=== PATIENT | male | born 1980 | race Caucasian/White ===

== ENCOUNTER 2017-07-09 11:32 | Emergency (ER) | payer OTHER ==
--- NOTE | 2017-07-09 11:38 | PDOC ---
History of Present Illness - General Chief Complaint: Headache Stated Complaint: HEADACHE,DIZZY Time Seen by Provider: 07/09/17 11:38 - History of Present Illness Initial Comments: 07/09/17 11:52 37yo male presents ambulatory to the ED from his place of work c/o a moreira that occurs while he is at work. States at his work site, there has been work being done on the ceiling for the last few months. 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 Pt states when he leaves work the moreira resolves. States he had the moreira saturday and saturday while at work, but felt normal saturday while at home. States he left work today because the moreira worsened and he felt generally weak. Denies f/c. NO blurred vision or change in vision. No neck pain. NO rhinorrhea or sore throat. No cough/cp/sob. No abd pain. No n/v/d. No dsyuria. No paresthesias. Pt ambulated into the ED. Pt denies dysuria. No n/v/d. No vertigo. No ear pain. No other complaints. Pt states he does not wear a mask at work. PMHx: chronic back pain, shoulder pain, knee pain (follows with orthopedics) PShx: L shoulder surgery, L knee surgerty Allergies: denies Social: denies tobacco, etoh, drugs Meds: motrin, hydrocodone Past History - Past Medical History Allergies/Adverse Reactions: Allergies Allergy/AdvReac Type Severity Reaction Status Date / Time No Known Allergies Allergy Verified 07/09/17 11:38 Home Medications: Ambulatory Orders Oxycodone HCl/Acetaminophen [Percocet 10-325 mg Tablet] 1 - 2 tab PO Q6H Tramadol HCl 50 mg PO PRN 04/22/15 Zolpidem Tartrate [Ambien] 5 mg PO HS 04/22/15 Celecoxib [Celebrex] 200 mg PO DAILY 07/09/17 Ibuprofen [Motrin -] 800 mg PO PRN PRN 07/09/17 - Suicide/Smoking/Psychosocial Hx Smoking History: Never smoked Hx Alcohol Use: No Drug/Substance Use Hx: No Substance Use Type: None Review of Systems - Review of Systems Able to Perform ROS?: Yes Is the patient limited Italian proficient: No Constitutional: No: Chills, Fever HEENTM: No: Eye Pain, Blurred Vision, Ear Discharge, Nose Pain, Nose Congestion , Throat Pain, Throat Swelling Respiratory: No: Cough, Shortness of Breath, Wheezing Cardiac (ROS): No: Chest Pain, Irregular Heart Rate, Palpitations ABD/GI: No: Diarrhea, Nausea, Vomiting : No: Burning, Dysuria Musculoskeletal: Yes: Muscle Weakness. No: Back Pain Integumentary: No: Bruising, Rash Neurological: Yes: Headache. No: Numbness, Paresthesia, Tingling, Unsteady Gait , Ataxia All Other Systems: Reviewed and Negative *Physical Exam - Vital Signs 07/09/17 11:58 Selected Entries 07/09/17 11:38 Temperature 98.1 F Pulse Rate 84 Respiratory 19 Rate Blood Pressure 126/75 Blood Pressure 92 Mean O2 Sat by Pulse 100 Oximetry (%) Weight 83.915 kg - Physical Exam General Appearance: Yes: Nourished, Appropriately Dressed. No: Apparent Distress HEENT: positive: EOMI, DAVID, Normal ENT Inspection, Pharynx Normal. negative: Rhinorrhea Neck: positive: Trachea midline, Supple. negative: Tender Respiratory/Chest: positive: Lungs Clear, Normal Breath Sounds. negative: Chest Tender, Respiratory Distress, Accessory Muscle Use, Crackles, Rales, Rhonchi, Stridor, Wheezing Cardiovascular: positive: Regular Rhythm, Regular Rate, S1, S2. negative: Edema , Murmur Gastrointestinal/Abdominal: positive: Normal Bowel Sounds, Flat, Soft. negative : Guarding, Rebound, Tenderness Lymphatic: negative: Adenopathy Musculoskeletal: positive: Normal Inspection. negative: CVA Tenderness Extremity: positive: Normal Capillary Refill, Normal Inspection, Normal Range of Motion, Other (ambulatory with a steady gait) Integumentary: positive: Normal Color, Dry, Warm Neurologic: positive: parimutuel clerk II-XII NML intact, Fully Oriented, Alert, Normal Mood/ Affect, Motor Strength 5/5, Other (ambulatory with a steady gait). 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 Please return to the ED with any further complaints. Please make an appointment to follow up with your PMD. - Post Discharge Activity Forms/Work/School Notes: Back to Work
[2017-07-09 11:48] VITALS: BP 126/75; PULSE 84; TEMP 98.1; BMI 27.3
[2017-07-09] MEDS ORDERED: IBUPROFEN 600 MG TABLET (FP) PO ONE ×2 (11:52→11:59)
[2017-07-09] MEDS ORDERED: METOCLOPRAMIDE HCL 10 MG TABLET (FP) PO ONE ×2 (11:52→11:59)
[2017-07-09 14:32] LABS: ARTERIAL BLD GAS O2 SATURATION 99.1 % (90-98.9); ARTERIAL BLOOD GAS BASE EXCESS 2.2 meq/l (-2-2); ARTERIAL BLOOD GAS PCO2 41.6 mmHg (35-45); ARTERIAL BLOOD GAS pH 7.42 (7.35-7.45)
[2017-07-09 14:40] LABS: CARBOXYHEMOGLOBIN 0.7 gm% (0.5-2.0)
== END 2017-07-09 15:31 | disposition home or self-care (01) ==
LOC: FER 11:32
DX: Z77.098 Contact with and (suspected) exposure to other hazardous, chiefly nonmedicinal, chemicals (principal); R51 Headache; X58.XXXA Exposure to other specified factors, initial encounter; Y93.89 Activity, other specified; Y92.9 Unspecified place or not applicable; G89.29 Other chronic pain
CPT/HCPCS: 36600; 82375; 82803; 83050; 99282-25

== ENCOUNTER 2018-11-01 18:49 | Emergency (ER) | payer OTHER ==
[2018-11-01 19:04] VITALS: BP 132/96; PULSE 83; TEMP 98.8; BMI 25.9
[2018-11-01] MEDS ORDERED: SILVER SULFADIAZINE 1% TOP CREAM 50 GM JAR TP ONE (19:40)
--- NOTE | 2018-11-02 04:28 | PDOC ---
Documentation entered by Qamar Wright SCRIBE, acting as scribe for Mala Smith MD. Mala Smith MD: This documentation has been prepared by the Kyle fernando Daniel, SCRIBE, under my direction and personally reviewed by me in its entirety. I confirm that the documentation accurately reflects all work, treatment, procedures, and medical decision making performed by me. History of Present Illness - General Chief Complaint: Burn Stated Complaint: BURN TO LEFT FOREARM History Source: Patient Exam Limitations: No Limitations - History of Present Illness Initial Comments: 11/01/18 19:39 The patient is a 38 year old male with a past medical history of multiple left shoulder surgeries, knee surgery, and bulging C-spine disc here today for evaluation of a burn to the left forearm. The patient reports that he went to a cryotherapy facility on (10/30/18) for treatment of his chronic pain. After the treatment(whole body immersion) he noticed a painful red patch on his left forearm that has since reduced in size. He reports that a blister appeared in the center of the residual red area yesterday morning and has grown in size. Patient denies headache, lightheadedness. Denies fever, chills. Denies chest pain, shortness of breath. Denies nausea, vomiting, diarrhea, abdominal pain. Allergies: NKA Social history: Patient denies tobacco, illicit drug, or alcohol use PCP: Damian Gr Past History - Past Medical History Allergies/Adverse Reactions: Allergies Allergy/AdvReac Type Severity Reaction Status Date / Time No Known Allergies Allergy Verified 11/01/18 18:51 Home Medications: Ambulatory Orders Ibuprofen [Motrin -] 800 mg PO PRN PRN 07/09/17 COPD: No Other medical history: herniated disks - Suicide/Smoking/Psychosocial Hx Smoking History: Never smoked Have you smoked in the past 12 months: No Information on smoking cessation initiated: No Hx Alcohol Use: No Drug/Substance Use Hx: No Substance Use Type: None Review of Systems - Review of Systems Able to Perform ROS?: Yes Comments:: 11/01/18 19:39 All systems are reviewed and negative except as noted in the HPI *Physical Exam - Vital Signs Last Vital Signs Temp Pulse Resp BP Pulse Ox 98.8 F 83 18 132/96 98 11/01/18 18:49 11/01/18 18:49 11/01/18 18:49 11/01/18 18:49 11/01/18 18:49 - Physical Exam Comments: 11/01/18 19:40 GENERAL: Awake, alert, and fully oriented, in no acute distress HEAD: No signs of trauma EYES: PERRLA, EOMI, sclera anicteric, conjunctiva clear ENT: Auricles normal inspection, hearing grossly normal, nares patent, oropharynx clear without exudates. Moist mucosa NECK: Normal ROM, supple, no lymphadenopathy, JVD, or masses LUNGS: Breath sounds equal, clear to auscultation bilaterally. No wheezes, and no crackles HEART: Regular rate and rhythm, normal S1 and S2, no murmurs, rubs or gallops ABDOMEN: Soft, nontender, normoactive bowel sounds. No guarding, no rebound. No masses EXTREMITIES: Normal range of motion, no edema. No clubbing or cyanosis. No cords, erythema, or tenderness NEUROLOGICAL: Cranial nerves II through XII grossly intact. Normal speech, normal gait SKIN: +5x2 cm erythematous, mildly tender horizontal area of the volar aspect of the distal left forearm with central 1x2 cm bulla. otherwise normal Medical Decision Making - Medical Decision Making Clinical presentation is consistent with a small area of second-degree burn surrounded by a limited area of first-degree burn of the left forearm, apparently caused by whole-body immersion cryotherapy 2 days prior to presentation. At this point, burn wound is not infected. Using sterile technique, burn wound cleansed using Hibiclens/ethanol solution. Area is draped and 3 mL syringe with 23-gauge needle used to carefully aspirate off blister fluid. Silvadene cream applied to wound followed by Telfa pad and sterile gauze wrap. The patient will redress the wound with Silvadene and sterile dressing at least once a day (twice if possible). He should keep the wound covered during the day when he is working. Follow-up with his general medical doctor should occur within the next 3-4 days. She return to the ER or see his doctor sooner if he has increase in redness/swelling/pain in the wound or if he develops fever *DC/Admit/Observation/Transfer Diagnosis at time of Disposition: 2nd deg burn arm Qualifiers: Encounter type: initial encounter Upper extremity location: forearm Laterality : left Qualified Code(s): T22.212A - Burn of second degree of left forearm, initial encounter - Discharge Dispostion Disposition: HOME Condition at time of disposition: Stable - Referrals - Patient Instructions Printed Discharge Instructions: DI for [facility] Additional Instructions: Apply Silvadene cream and clean dressing twice daily as discussed Keep burn wound covered during day while at work Follow-up with your doctor within the next 3-4 days Return to ER if area becomes more painful/swollen/red or you develop fever - Post Discharge Activity
== END 2018-11-01 20:01 | disposition home or self-care (01) ==
LOC: FER 18:49
PROC: 2W2BX4Z Dressing of Left Upper Arm using Bandage (ICD-10-PCS; principal; 2018-11-01)
DX: T22.212A Burn of second degree of left forearm, initial encounter (principal); T65.91XA Toxic effect of unspecified substance, accidental (unintentional), initial encounter; Y92.89 Other specified places as the place of occurrence of the external cause
CPT/HCPCS: 99282-25